=== PATIENT | female | born 1970 | race Caucasian/White ===

== ENCOUNTER → 2020-06-23 13:42 | Outpatient (CLI) | payer BC, SELFPAY ==
--- NOTE | 2020-06-23 13:50 | ECHOD_ITS ---
Reason For Study: ATYPICAL CHEST PAIN Procedure This was a 2D Doppler, Color Flow transthoracic echocardiogram. Exam performed in department. Left Ventricle Normal LV size. Left ventricular systolic function is normal. The estimated ejection fraction is 65 %. Stage 1 diastolic dysfunction. No regional wall motion abnormalities noted. Right Ventricle Normal RV size. Normal systolic function. Atria Normal left atrium. Normal right atrium. Bubble contrast study negative for right to left interatrial shunt. Mitral Valve Normal mitral valve. Tricuspid Valve Normal tricuspid valve. Aortic Valve Normal aortic valve. Trisinus/trileaflet aortic valve. Mild (1+) aortic valve insufficiency. Pulmonic Valve Normal pulmonic valve. Great Vessels Mildly dilated aortic root. The pulmonary artery is normal size. Normal inferior vena cava. Pericardium/Pleural No pericardial effusion. Medication 22 gauge I.V. with prn adaptor inserted into left arm. Performed a rapid injection of agitated mix of 9 cc saline and 1cc air to assess for atrial septal defect. MMode/2D Measurements & Calculations LVIDd: 4.6 cm IVSd: 0.88 cm Ao root diam: 3.5 cm LVIDs: 2.8 cm LVPWd: 0.86 cm RVDd: 3.4 cm FS: 38.4 % LAV(MOD-bp): 45.1 ml LVAd ap4: 33.0 cm2 SV(MOD-sp4): 62.5 ml LAV(MOD-bp) Indexed: 23.1 ml/m2 EDV(MOD-sp4): 106.4 ml LAV(MOD-sp2): 42.5 ml EDV(sp4-el): 110.7 ml LAV(MOD-sp4): 40.9 ml LVAs ap4: 18.6 cm2 ESV(MOD-sp4): 43.9 ml ESV(sp4-el): 44.3 ml EF(MOD-sp4): 58.8 % EF(sp4-el): 60.0 % SV(sp4-el): 66.4 ml LA A4 area: 15.7 cm2 LA dimension(2D): 3.8 cm RA A4 area: 13.3 cm2 Time Measurements MV dec time: 0.24 sec Doppler Measurements & Calculations MV E max usman: 64.4 cm/sec Lat Peak E' Usman: 14.0 cm/sec Med Peak E' Usman: 12.5 cm/sec MV A max usman: 53.8 cm/sec E/E' lat: 4.6 E/E' med: 5.2 MV E/A: 1.2 Ao V2 max: 136.1 cm/sec AI max usman: 317.9 cm/sec LV V1 max: 126.7 cm/sec Ao max P.4 mmHg AI max P.4 mmHg LV V1 max P.4 mmHg AI dec slope: 106.3 cm/sec2 AI P1/2t: 875.9 msec PA V2 max: 111.5 cm/sec Interpretation Summary Normal LV size. Left ventricular systolic function is normal. The estimated ejection fraction is 65 %. Bubble contrast study negative for right to left interatrial shunt. Stage 1 diastolic dysfunction. Mild (1+) aortic valve insufficiency. Ordering Physician: Isabel Delaney Referring Physician: Isabel Delaney Performed By: Shari Stuart RDCS
--- NOTE | 2020-06-23 14:50 | US_ITS ---
STUDY: RENAL ULTRASOUND - COMPLETE REASON FOR EXAM: Female, 49 years old. FAMILY HX KIDNEY DISEASE OCCASIONAL FLANK PAIN TECHNIQUE: Ultrasound evaluation of the kidneys was performed with real-time and static wilburn-scale imaging. COMPARISON: None. FINDINGS: RIGHT KIDNEY: Normal location of the right kidney, which is normal in size. The right kidney measures 11.5 x 5.8 x 4.9 cm. There is a normal cortex of the right kidney. The renal cortex measures 1.2 cm. There is no right renal mass or cyst. There are no right renal calculi. There is no right hydronephrosis. DISTAL RIGHT URETER: There is non-visualization of the distal right ureter. There is no demonstrated right ureterovesical junction calculus. There is a visualized right ureteral jet. LEFT KIDNEY: Normal location of the left kidney, which is normal in size. The left kidney measures 11.3 x 4.6 x 5.2 cm. There is a normal cortex of the left kidney. The renal cortex measures 1.5 cm. There is no left renal mass or cyst. There are no left renal calculi. There is no left hydronephrosis. DISTAL LEFT URETER: There is non-visualization of the distal left ureter. There is no demonstrated left ureterovesical junction calculus. There is a visualized left ureteral jet. BLADDER: The distended urinary bladder has a volume of 167 ml. There is a normal wall thickness of the distended urinary bladder. There is no demonstrated mass within the urinary bladder. There are no demonstrated bladder calculi. US/Kidney and Bladder IMPRESSION: Normal ultrasound of the kidneys and urinary bladder. Electronically Signed: Bassem Mcduffie MD ([place]) at 16:39 EDT , Service support ,
== END ==
PROVIDERS: PCP Nurse Practitioner; Referring Provider Internal Medicine; Visit Provider Internal Medicine
DX: R07.89 Other chest pain (principal); Z84.1 Family history of disorders of kidney and ureter
CPT/HCPCS: 76770; 93306; A4216

== ENCOUNTER → 2020-06-28 07:11 | Outpatient (CLI) | payer BC, SELFPAY ==
--- NOTE | 2020-06-28 10:35 | STRESSREP_ITS ---
Stress Test Report Date: 06/28/2020 Procedure: Exercise tolerance test/imaging study Indications: Palpitations Consent: Per the patient Procedure: The patient exercised on a Nelson protocol for 9 minutes achieving a peak heart rate of 153 bpm (90% predicted maximal heart rate) with a peak blood pressure 220/84 mmHg and a peak MET capacity of 10.1 METs. The baseline ECG demonstrated normal sinus rhythm. The peak exercise ECG demonstrated sinus tachycardia with no significant ST-T changes. EKG during recovery revealed no significant ischemic changes below [There were no cardiac dysrhythmias pretest, during exercise, or recovery]. The functional capacity was considered normal for age. There was [no complaint of chest discomfort during exercise or recovery]. The examination was discontinued secondary to dyspnea. Impression: 1. Technically adequate (percent predicted maximal heart rate greater than 85%) exercise tolerance test 2. Stress test is negative for exercise-induced EKG changes of ischemia 3. The test test is negative for exercise-induced chest pain 4. Functional capacity is normal for age 5. Nuclear images pending Myocardial perfusion imaging study: Technique: The patient was injected with 14.3 mCi of technetium 99m Cardiolite and subsequently rest SPECT Cardiolite nuclear imaging was obtained in the horizontal long, vertical long, and short axis views. The patient exercised on a Nelson protocol. Please see above for details. The patient was injected with 45 mCi of technetium 99m Cardiolite and subsequently stress SPECT Cardiolite nuclear imaging was obtained in the horizontal long, vertical long, and short axis views. A gated Cardiolite study at peak stress was obtained. Interpretation: Rest and stress SPECT Cardiolite nuclear imaging status post realignment, normalization, and attenuation correction, demonstrates overall normal myocardial radioisotope uptake. The gated Cardiolite study demonstrates no significant regional wall motion abnormalities. The reported LVEF is 70%. Impression: 1. There is no evidence of significant ischemia or infarction. 2. The gated Cardiolite study reports an LVEF of 70%. This note was generated with [employer] software. It may contain incorrect words, spelling, and punctuation that were not noted in checking the note before signing.
== END ==
PROVIDERS: PCP Nurse Practitioner; Referring Provider Nurse Practitioner; Visit Provider Nurse Practitioner
DX: R00.2 Palpitations (principal)
CPT/HCPCS: 78452; 93017; 93225; 93226; A9500; A4216; J2785

== ENCOUNTER 2024-01-08 11:28 | Emergency (ER) | payer OTHER, SELFPAY ==
[2024-01-08 11:30] VITALS: BP 170/101; PULSE 79; RESP 16; TEMP 36.1; O2SAT 100; BMI 33.6
--- NOTE | 2024-01-08 12:03 | EKG12_ITS ---
Test Reason : GENERAL ILLNESS Blood Pressure : / mmHG Vent. Rate : 067 BPM Atrial Rate : 067 BPM P-R Int : 158 ms QRS Dur : 090 ms QT Int : 400 ms P-R-T Axes : 024 019 035 degrees QTc Int : 422 ms Normal sinus rhythm Normal ECG Confirmed by Brian Strong ([id number]), editorial cartoonist GINO CANO ([id number]) on 01/12/2024 10:22:23 AM Referred By: Confirmed By:Brian Strong
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
--- NOTE | 2024-01-08 12:07 | NURSING ---
NO OLD EKGS
[2024-01-08 12:35] LABS: Absolute Lymphocyte Count 1.94 X10^3/uL (0.83-4.51); Absolute Neutrophil Count 4.1 X10^3/uL (2.0-7.7); Basophil# 0.04 X10^3/uL; Basophil% 0.6 % (0-1); Eosinophil# 0.17 X10^3/uL; Eosinophils% 2.5 % (0-5); Hematocrit 41.8 % (37-47); Hemoglobin 14.5 g/dL (12.0-15.0); Lymphocyte # 1.94 X10^3/ul (0.83-4.51); Lymphocyte % 28.5 % (19-41); Mean Corp Hgb Conc 34.7 g/dL (32-36); Mean Corpuscular Hgb 30.8 pg (27.0-32.0); Mean Corpuscular Volume 88.7 fL (81-99); Mean Platelet Vol. 9.1 fl (6.2-12.0); Monocyte# 0.57 X10^3/uL; Monocyte% 8.4 % (0-10); NRBC Flagged by Analyzer 0 % (0-5); Neutrophil # 4.07 X10^3/uL (2.7-7.7); Neutrophil % 59.7 % (47-70); Platelet Count 276 K/mm3 (150-450); RBC Distribution Width CV 12.3 % (11.6-14.6); RBC Distribution Width SD 40.8 fl (35.1-43.9); Red Blood Count 4.71 M/mm3 (4.2-5.4); White Blood Count 6.8 K/mm3 (4.4-11.0)
[2024-01-08 12:54] LABS: Anion Gap 2 (5-15); BUN 14 mg/dL (7-18); BUN/Creat Ratio 22.4 RATIO (10-20); Calcium,Total 9.3 mg/dL (8.5-10.1); Chloride 106 mmol/L (98-107); Creatinine, Serum 0.63 mg/dL (0.55-1.02); EST Glomerular Filtration Rate 105 mL/min (>60); Est Glom Filt Rate - Afr Amer 127 mL/min (>60); Estimated Creatinine Clearance 112.94 ml/min; Glucose 108 mg/dL (74-106); Potassium 3.8 mmol/L (3.5-5.1); Sodium Level 138 mmol/L (136-145); Troponin-I HS 4 pg/mL (3.0-54.0)
--- NOTE | 2024-01-08 13:02 | CT_ITS ---
STUDY: CT BRAIN WITHOUT CONTRAST REASON FOR EXAM: Female, 53 years old. Headache RADIATION DOSAGE (If Supplied By Facility): CTDIvol = ( 47.06 ) mGy, DLP = ( 907.97 ) mGycm TECHNIQUE: Transaxial CT imaging of the brain was performed without administration of intravenous contrast material. Individualized dose optimization techniques were used for this CT. COMPARISON: No relevant priors. FINDINGS: Normal soft tissue structures. Normal calvarium. Normal size ventricles and extra-axial spaces for the patient''s age. Normal white matter tracts of the cerebral hemispheres. Normal basal ganglia and thalami. Normal brainstem. Normal cerebellum. There is no intracranial hemorrhage. There are no findings of an acute ischemic infarction. Normal visualized paranasal sinuses. CT/Brain/Head without Contrast IMPRESSION: Normal unenhanced CT scan of the brain. Electronically Signed: Kushal Abdul MD at 13:22 EDT ,
--- NOTE | 2024-01-08 13:08 | RAD_ITS ---
STUDY: X-RAY CHEST REASON FOR EXAM: Female, 53 years old. Chest pain TECHNIQUE: Single AP portable view of the chest. COMPARISON: None. FINDINGS: EKG electrodes are seen. The lungs are clear and expanded. Scattered calcified granulomas. There is no demonstrated pleural abnormality. Normal size heart. Normal mediastinum and aayush. Normal visualized pulmonary arteries. Normal visualized aortic arch and descending thoracic aorta. There are degenerative changes of the visualized thoracic spine. Normal visualized ribs, clavicles, and shoulders. There is no demonstrated abnormality of the visualized soft tissue structures of the upper abdomen. RAD/Chest 1 View (Portable) IMPRESSION: Normal x-ray examination of the chest. Electronically Signed: Kushal Abdul MD at 13:23 EDT ,
[2024-01-08 13:56] VITALS: PULSE 69; RESP 17; O2SAT 73
[2024-01-08 14:36] VITALS: BP 146/86; PULSE 76; RESP 16; TEMP 37.1; O2SAT 97
== END 2024-01-08 14:37 | disposition home or self-care (01) ==
PROVIDERS: Emergency Provider Student in an Organized Health Care Education/Training Program; PCP Nurse Practitioner Family; Visit Provider Student in an Organized Health Care Education/Training Program
DX: R42 Dizziness and giddiness (principal); R51.9 Headache, unspecified
CPT/HCPCS: 70450; 71045; 80048; 84484; 85025; 93005; 99283; A4216

== ENCOUNTER 2024-07-26 12:37 | Emergency (ER) | payer BC, SELFPAY ==
[2024-07-26 12:38] VITALS: BP 176/94; PULSE 99; RESP 16; TEMP 36.3; O2SAT 99; BMI 35.3
--- NOTE | 2024-07-26 14:31 | ED.RN ---
pt in triage waiting for room. bleeding controlled few clotss and minimal bleeding at this time. pt more calm and feels like it is improved.
--- NOTE | 2024-07-26 15:34 | ED.VIS.DENTA ---
HPI History of Present Illness Chief Complaint: Dental Informant: patient Onset/Context/Timing Onset: Today Context: Gradual Onset Timing: Continuous Quality: Sore Location: Bilateral upper second molars Worsened by: Nothing Relieved by: - (Nothing) Associated Symptoms Assocated Symptom - Dental: jaw swelling and face swelling; Negative for fever, cold sensitivity or hot sensitivity Narrative Narrative: Patient presents with bleeding from her gums that began today. Patient had 2 dental extractions of her upper second molars. Patient states that while she was getting her prescriptions filled the extraction sites started bleeding again. Patient admits to some mild swelling. Patient denies any fevers or chills. Patient admits to some pain over this area. Patient describes it as a soreness. Patient denies any difficulty breathing or difficulty swallowing. Patient has not started taking her antibiotics or analgesics yet. [facility] Medical History (Updated 07/26/24 @ 15:[address] Abbe Sloan DO) GERD (gastroesophageal reflux disease) Hypertension Allergy/AdvReac Type Severity Reaction Status Date / Time morphine AdvReac Mild Nausea Verified 07/26/24 12:40 Surgical History (Updated 07/26/24 @ 15:[address] Abbe Sloan DO) Hx of tooth extraction Social History Smoking Status: Never smoker ROS ROS ED Constitutional Constitutional ED: Denies chills or fever(s) Eyes Eyes: Denies blurry vision or change in vision ENT ENT ED: Denies rhinorrhea or sore throat Cardiovascular Cardiovascular: Denies chest pain or palpitations Respiratory/Chest Respiratory/Chest: Denies cough or dyspnea Gastrointestinal Gastrointestinal: Reports nausea; Denies vomiting Genitourinary Genitourinary ED: Denies dysuria or hematuria Musculoskeletal Musculoskeletal: Denies back pain or neck pain Integumentary Denies abscess or rash Neurologic Neurologic: Denies headache(s) or weakness Allergic/Immunologic Allergic/Immunologic ED: Denies mouth swelling or urticaria EXAM Physical Exam Const Vital Signs: 07/26/24 12:38 Temperature 97.4 F L Temperature Source Temporal Pulse Rate 99 Respiratory Rate 16 Blood Pressure 176/94 H Blood Pressure Mean 121 Pulse Ox 99 Oxygen Delivery Method Room Air Positive well nourished and well developed General Appearance ED: well developed and NAD HEENT HEENT Narrative: There is some mild gingival edema around the bilateral upper molar area. There is no fluctuance. There is some mild bleeding from the extraction sites. There is no pulsatile bleeding. Oral mucosa is pink and moist. Oropharynx is clear. Airway is patent. Neck is supple. Trachea is midline. There is no JVD. There is no sublingual edema noted. There is no evidence of David's angina. Mouth ED: Yes oral and palatal mucosa normal Mouth: oral and palatal mucosa normal Teeth and Gingiva: gingiva abnormal Positive for gingival edema Neck supple and no JVD General: Negative for anterior neck swelling, tenderness or submandibular swelling Neuro oriented x3, CN's II-XII intact bilaterally, moves all extremities, no focal motor deficits and no sensory deficits noted Sensorium / Orientation: alert Psych mental status grossly normal MDM MDM MDM Narrative Medical decision making narrative: Patient was advised that her bleeding does not require any intervention at this time. Patient was instructed to continue using gauze pads to apply pressure to the area. Patient was instructed to use a teabags to help with the bleeding. Patient was instructed to follow-up with her dentist in 3 to 5 days. Patient was instructed to return if worse in any way. Patient understood and was agreeable with the plan. All questions were answered. Discharge Plan Triage Chief Complaint: Dental ED Provider: Abbe Sloan Dx/Rx/DC Orders Clinical Impression: Postoperative bleeding from mouth, Hypertension Instructions: ED Post Op Wound Check, Bleeding Primary Care Provider: Laura Aguiar Referrals: Laura Aguiar NP-C [Primary Care Provider] - 5-7 Days Dentist,Your [STAFF PHYSICIAN] - 3-5 Days Print Language: Paraguayan Disposition Disposition: Home, Self Care
[2024-07-26 16:03] VITALS: BP 156/83; PULSE 65; RESP 18; TEMP 36.6; O2SAT 97
== END 2024-07-26 16:05 | disposition home or self-care (01) ==
PROVIDERS: Emergency Provider Emergency Medicine; PCP Nurse Practitioner Family; Visit Provider Emergency Medicine
DX: K91.840 Postprocedural hemorrhage of a digestive system organ or structure following a digestive system procedure (principal); Y84.8 Other medical procedures as the cause of abnormal reaction of the patient, or of later complication, without mention of misadventure at the time of the procedure; Z98.818 Other dental procedure status; I10 Essential (primary) hypertension; K21.9 Gastro-esophageal reflux disease without esophagitis; K08.89 Other specified disorders of teeth and supporting structures
CPT/HCPCS: 99282

== ENCOUNTER → 2024-10-19 | Outpatient (CLI) | payer BC, SELFPAY ==
--- NOTE | 2024-10-19 16:52 | RAD_ITS ---
PROCEDURE: Right knee radiographs, four views REASON FOR EXAM: Right knee pain and swelling TECHNIQUE: Four views of the right knee were obtained. COMPARISON: None. FINDINGS: Four views of the right knee were obtained. Bones are osteopenic. No acute fracture or dislocation. Moderate tricompartmental degenerative changes, greatest involving the patellofemoral compartment. Small suprapatellar effusion. RAD/Knee 4 or More Views IMPRESSION: Osteopenia. No acute bony abnormality of the right knee. Moderate tricompartmental degenerative changes, greatest involving the patellof emoral compartment. Small suprapatellar effusion. Reading Location: [facility]
== END | disposition home or self-care (01) ==
LOC: MTRAD 16:50
PROVIDERS: PCP Nurse Practitioner Family; Referring Provider Nurse Practitioner Family; Visit Provider Nurse Practitioner Family
DX: M25.561 Pain in right knee (principal)
CPT/HCPCS: 73564

== ENCOUNTER → 2024-12-27 | Outpatient (CLI) | payer BC, SELFPAY ==
--- NOTE | 2024-12-27 15:30 | MRI_ITS ---
PROCEDURE: LOWER EXT JOINT ONLY (ROUTINE) 12/27/2024 REASON FOR EXAM: RIGHT KNEE-ACUTE ON CHRONIC. LATERAL AND SUPERIOR TECHNIQUE: MRI of the rightlower Extremity. Multiplanar and multisequence images were obtained without IV contrast administration. COMPARISON: COMPARISON : Right knee radiographs 10/19/2024 FINDINGS: Bone Marrow: Tiny cystic changes near the tibial spine, which may be insertional are degenerative. Effusion: Small knee joint effusion. Soft Tissues: Small Duncan's cyst. Ligaments and Tendons: Intact ACL, PCL, MCL, and lateral collateral ligamentous complex. Popliteus tendon is unremarkable. Extensor mechanism is intact. Superior patellar enthesophyte. Menisci: No discrete tear. Cartilage: Thinning and fissuring of the cartilage in the medial and patellofemoral compartments. No large full-thickness cartilage defect. MRI/Lower Ext Joint Only (Routine) IMPRESSION: 1. No acute abnormality. Small knee joint effusion. 2. Mild to moderate osteoarthritis, worst in the patellofemoral compartment. 3. Small Duncna's cyst. Reading Location: [facility]
== END | disposition home or self-care (01) ==
LOC: MRI 15:27
PROVIDERS: PCP Nurse Practitioner Family; Referring Provider Nurse Practitioner Family; Visit Provider Nurse Practitioner Family
DX: M25.561 Pain in right knee (principal)
CPT/HCPCS: 73721